=== PATIENT | male | born 1975 | race Caucasian/White ===

== ENCOUNTER 2019-06-19 20:25 | Emergency (ER) | payer OTHER ==
[2019-06-19] MEDS ORDERED: ACETAMINOPHEN 500 MG TABLET (FP) PO ONE (20:51)
[2019-06-19] MEDS ORDERED: ACETAMINOPHEN 500 MG TABLET (FP) ONE (20:53)
[2019-06-19 21:01] VITALS: PULSE 88; TEMP 98.2; BMI 26.2
[2019-06-19 21:37] VITALS: BP 141/98
--- NOTE | 2019-06-20 01:21 | PDOC ---
Documentation entered by Deborah Martinez SCRIBE, acting as scribe for Lesvia Ibarra MD. Lesvia Ibarra MD: This documentation has been prepared by the Michelle allen Nirvannie, SCRIBE, under my direction and personally reviewed by me in its entirety. I confirm that the documentation accurately reflects all work, treatment, procedures, and medical decision making performed by me. History of Present Illness - General Chief Complaint: Headache Stated Complaint: HTN/HEADACHE Time Seen by Provider: 06/19/19 20:26 History Source: Patient Exam Limitations: No Limitations - History of Present Illness Initial Comments: 06/19/19 21:03 The patient is a 44 year old male, with a significant past medical history of hyperlipidemia, who presents to the emergency department with, 1 day of persistent headache. As per patient, he was out in the sun all day and has been experiencing a headache diffusely throughout the day which he has been alternating Tylenol and Advil (last dose 2pm). He notes his headache was significantly alleviated when drinking water but, notes consistent recurrence of symptoms. He notes taking his blood pressure upon arriving home and noticing a systolic reading of 180, prompting his arrival to the ED. Patient notes a recent trip to urgent care for a sore throat and ear pressure at which time his blood pressure was elevated. He notes the provider at the facility advised him it could be secondary to the usage of his decongestants, however, if he had any new onset of headaches to report to the ED. He denies any change in vision, lightheadedness, syncope, or near-syncope.He denies any recent chest pain, palpitations, or shortness of breath. He denies any recent fevers, chills, or dizziness. He denies any recent nausea, vomiting, diarrhea or constipation. He denies any recent dysuria, frequency, urgency or hematuria. Allergies: NKDA Past surgical history: None reported. Social History: Daily alcohol (2 drinks per day). Daily caffeine (3 cups per day ). Former smoker. Denies any recreational drug usage. Primary Care Physician: Dr. David Past History - Past Medical History Allergies/Adverse Reactions: Allergies Allergy/AdvReac Type Severity Reaction Status Date / Time No Known Allergies Allergy Unverified 06/19/19 20:25 Home Medications: Ambulatory Orders Simvastatin 20 mg PO DAILY 06/19/19 Review of Systems - Review of Systems Able to Perform ROS?: Yes Comments:: 06/19/19 21:03 CONSTITUTIONAL: Present: Elevated blood pressure. Absent: fever, no chills, no fatigue EYES: Absent: visual changes ENT: Absent: ear pain, no sore throat CARDIOVASCULAR: Absent: chest pain, no palpitations RESPIRATORY: Absent: cough, no SOB GI: Absent: abdominal pain, no nausea, no vomiting, no constipation, no diarrhea GENITOURINARY: Absent: dysuria, no frequency, no hematuria MUSKULOSKELETAL: Absent: back pain, no arthralgia, no myalgia SKIN: Absent: rash NEURO: Present: headache All Other Systems: Reviewed and Negative *Physical Exam - Vital Signs Last Vital Signs Temp Pulse Resp BP Pulse Ox 98.2 F 88 16 141/98 97 06/19/19 20:27 06/19/19 20:27 06/19/19 20:27 06/19/19 21:36 06/19/19 20:27 - Physical Exam Comments: 06/19/19 21:26 GENERAL: The patient is awake, alert, and fully oriented, in no acute distress. HEAD: Normal with no signs of trauma. EYES: Pupils equal, round and reactive to light, extraocular movements intact, sclera anicteric, conjunctiva clear with no pallor. ENT: +Dry mucous membranes. Ears normal, nares patent, oropharynx clear without exudates. NECK: Normal range of motion, supple without lymphadenopathy, JVD, or masses. LUNGS: Breath sounds equal, clear to auscultation bilaterally. No wheeze/ crackles. HEART: Regular rate and rhythm, normal S1 and S2 without murmur or rub. ABDOMEN: Soft/nontender/nondistended. BS wnl. No guarding or rebound. No palpable masses. No hepatosplenomegaly. EXTREMITIES: Normal range of motion, no edema. No clubbing or cyanosis. No cords, erythema, or tenderness. NEUROLOGICAL: Cranial nerves II through XII grossly intact. Normal speech, normal gait. PSYCH: Normal mood, normal affect. SKIN: Warm, Dry, normal turgor, no rashes or lesions noted. ED Treatment Course - Medications Given in the ED: ED Medications Discontinued Medications Generic Name Dose Route Start Last Admin Trade Name Freq PRN Reason Stop Dose Admin Acetaminophen 1,000 mg 06/19/19 20:51 06/19/19 20:53 Tylenol - PO 06/19/19 20:52 1,000 mg ONCE ONE Administration Medical Decision Making - Medical Decision Making As noted above, this 44-year-old man with a history of hyperlipidemia but no other medical conditions was seen in urgent care earlier this week for upper respiratory ALLERGIC versus infectious symptoms. At that time, borderline elevated blood pressure readings obtained during his urgent care physical examination. No previous history of hypertension in the patient although he has family history of hypertension. He presents today because, after spending the whole day outside in hot/humid conditions and not aggressively hydrating himself, he has a headache (patient also admits to drinking rather heavily overnight last night). He had been told by physician at urgent care earlier this week to go to emergency room if he developed a headache. No other symptoms. Exam as noted. Although initial blood pressure reading here is elevated, patient also is quite anxious and in pain because of his headache. His mucous membranes are dry but the remainder of his exam is normal. Urgent blood pressure control not needed at this time. Patient was given Tylenol 1 g by mouth for his headache twelve-lead electrocardiogram performed: Normal sinus rhythm at 75 bpm; axis, intervals and waveforms are all normal. No evidence of acute ST or T-wave abnormalities; no evidence of acute cardiac arrhythmia. After resting in cool environment for approximately one hour, blood pressure was retaken. Although BP still mildly elevated (141/98), there is no necessity for emergent lowering of the blood pressure. This was explained to the patient and his parents. He has a general medical doctor with whom he can follow-up within the next 48-72 hours. Meanwhile, he was advised to avoid heavily salted or processed food and to avoid strenuous activity, especially outdoors in hot conditions for the next few days. He should be careful to hydrate himself if he is in any hot or humid environment. *DC/Admit/Observation/Transfer Diagnosis at time of Disposition: Blood pressure elevated without history of HTN - Discharge Dispostion Disposition: HOME Condition at time of disposition: Stable - Referrals Referrals: Raul David [Primary Care Provider] - 3 days - Patient Instructions Printed Discharge Instructions: Low-Sodium Diet Additional Instructions: Drink plenty of fluids Avoid strenuous activity, especially in hot/humid conditions over the next 48 hours Avoid excessive salt/processed foods in your diet as discussed Follow-up with your primary care doctor within the next 2-3 days Return to ER if you have persistently severe headache/shortness of breath/chest pain or palpitations - Post Discharge Activity
--- NOTE | 2019-06-20 17:43 | EKG ---
Test Reason : Blood Pressure : / mmHG Vent. Rate : 076 BPM Atrial Rate : 076 BPM P-R Int : 146 ms QRS Dur : 096 ms QT Int : 378 ms P-R-T Axes : 064 015 043 degrees QTc Int : 425 ms NORMAL SINUS RHYTHM NORMAL ECG NO PREVIOUS ECGS AVAILABLE Confirmed by ZULAY GUNN MD ([id number]) on 06/20/2019 5:43:01 PM Referred By: JAVON LOAIZA Confirmed By:ZULAY GUNN MD
== END 2019-06-19 22:10 | disposition home or self-care (01) ==
LOC: FER 20:25
DX: R03.0 Elevated blood-pressure reading, without diagnosis of hypertension (principal); E78.5 Hyperlipidemia, unspecified
CPT/HCPCS: 93005; 99282-25